=== PATIENT | male | born 1990 | race Caucasian/White ===

== ENCOUNTER 2017-06-18 10:27 | Inpatient (IN) | payer MEDICAID ==
[~2017-06-18] VITALS: Ht 177.8 cm; Wt 101.2 kg
[2017-06-18] MEDS ORDERED: LAMO25 PO (10:37)
[2017-06-18] MEDS ORDERED: QUET100T PO (10:37)
[2017-06-18] MEDS ORDERED: CITA10TA68 PO (10:37)
[2017-06-18] MEDS ORDERED: ARIP5TAB8 PO (10:37)
[2017-06-18 11:20] LABS: BASOPHILS % (AUTO) 0.5 % (0.0-2.0); EOSINOPHILS % (AUTO) 7.7 % (1.0-6.0); HEMATOCRIT 46.3 % (41-53); HEMOGLOBIN 16.2 g/dL (13.5-17.5); LYMPHOCYTES # (AUTO) 1.7 K/uL (1.0-4.8); LYMPHOCYTES % (AUTO) 27.6 % (22.0-44.0); MEAN CORPUSCULAR HEMOGLOBIN 30.2 pg (26.0-34.0); MEAN CORPUSCULAR HGB CONC 35.1 G/dL (31.0-37.0); MEAN CORPUSCULAR VOLUME 86 fL (80-100); MONOCYTES # (AUTO) 0.4 K/uL (0.1-1.0); MONOCYTES % (AUTO) 6.6 % (2.0-9.0); NEUTROPHILS # (AUTO) 3.5 K/uL (1.8-7.7); NEUTROPHILS % (AUTO) 57.6 % (40.0-70.0); PLATELET COUNT (AUTO) 295 K/uL (150-450); RED BLOOD CELL COUNT(AUTO) 5.39 MIL/uL (4.50-5.90); RED CELL DISTRIBUTION WIDTH 12.8 % (11.5-14.5)
[2017-06-18 11:28] LABS: AMPHET/METH SCREEN,URINE NEGATIVE (NEGATIVE); BARBITURATE SCREEN, URINE NEGATIVE (NEGATIVE); BENZODIAZEPINES SCREEN,URINE NEGATIVE (NEGATIVE); CANNABINOID SCREEN,URINE NEGATIVE (NEGATIVE); COCAINE SCREEN,URINE NEGATIVE (NEGATIVE); METHADONE SCREEN, URINE NEGATIVE (NEGATIVE); OPIATE SCREEN,URINE NEGATIVE (NEGATIVE)
[2017-06-18 11:29] LABS: PHENCYCLIDINE SCREEN,URINE NEGATIVE (NEGATIVE)
[2017-06-18 11:29] LABS: ANION GAP 7 mmol/L (8-16); CALCIUM, TOTAL 9.3 mg/dL (8.8-10.5); CARBON DIOXIDE 30 mmol/L (22-29); CHLORIDE 105 mmol/L (98-107); CREATININE 1.11 mg/dL (0.60-1.30); GLOMERULAR FILTR. RATE CALC > 60 mL/min (>60); GLUCOSE,RANDOM 103 mg/dL (70-110); POTASSIUM 3.8 mmol/L (3.5-5.1); SODIUM SERUM 142 mmol/L (136-145); UREA NITROGEN, BLOOD 20 mg/dL (7-18)
[2017-06-18] MEDS ORDERED: LORazepam 2 MG/ML VIAL IM ONE (11:30)
[2017-06-18] MEDS ORDERED: HALOPERIDOL LACTATE 5 MG/ML VIAL IM ONE (11:30)
[2017-06-18] MEDS ORDERED: DiphenhydrAMINE HCL 50 MG/ML VIAL IM ONE (11:30)
[2017-06-18 11:36] LABS: ALANINE AMINOTRANSFERASE 36 U/L (12-78); ALKALINE PHOSPHATASE 62 U/L (46-116); ASPARTATE AMINOTRANSFERASE 18 U/L (15-37); BILIRUBIN,TOTAL 0.5 mg/dL (0.1-1.0); TOTAL PROTEIN, SERUM 6.9 g/dL (6.4-8.2)
[2017-06-18] MEDS ORDERED: ZOLPIDEM TARTRATE 10 MG TABLET PO PRN (14:15)
[2017-06-18 16:00] VITALS: BP 114/66
[2017-06-18] MEDS ORDERED: ARIPiprazole 5 MG TABLET PO SCH (21:00)
[2017-06-18] MEDS ORDERED: LamoTRIgine 25 MG TABLET PO SCH (21:00)
[2017-06-18] MEDS ORDERED: QUEtiapine FUMARATE 100 MG TABLET PO SCH (21:00)
[2017-06-19 07:21] VITALS: BP 125/60
[2017-06-19 08:26] LABS: CHOL/HDL RATIO 4.6 (4.2-7.3)
[2017-06-19 08:40] VITALS: BP 116/63
[2017-06-19] MEDS ORDERED: CITALOPRAM HYDROBROMIDE 10 MG TABLET PO SCH (09:00)
[2017-06-19] MEDS: LORazepam 2 MG TABLET PO PRN (12:28)
[2017-06-19 13:50] VITALS: BP 129/81
[2017-06-19] MEDS: ACETAMINOPHEN 325 MG TABLET PO PRN (13:55)
[2017-06-19 16:12] VITALS: BP 118/74
[2017-06-19] MEDS: LamoTRIgine 100 MG TABLET PO SCH (20:10)
[2017-06-19] MEDS ORDERED: ARIPiprazole 10 MG TABLET PO SCH (21:00)
[2017-06-20] MEDS: HALOPERIDOL 5 MG TABLET PO PRN ×2 (01:51→16:03)
[2017-06-20] MEDS: ACETAMINOPHEN 325 MG TABLET PO PRN (02:24)
[2017-06-20] MEDS: LORazepam 2 MG TABLET PO PRN ×3 (02:53→19:35)
[2017-06-20 08:50] VITALS: BP 127/73
[2017-06-20] MEDS: CITALOPRAM HYDROBROMIDE 20 MG TABLET PO SCH (09:38)
[2017-06-20 16:30] VITALS: BP 133/91
[2017-06-20] MEDS: LamoTRIgine 100 MG TABLET PO SCH (20:02)
[2017-06-20] MEDS ORDERED: QUEtiapine FUMARATE 200 MG TABLET PO SCH (21:00)
[2017-06-21 01:08] VITALS: BP 100/62
[2017-06-21 08:14] VITALS: BP 119/80
[2017-06-21] MEDS: CITALOPRAM HYDROBROMIDE 20 MG TABLET PO SCH (08:20)
[2017-06-21] MEDS: LORazepam 2 MG TABLET PO PRN (10:02)
[2017-06-21 10:37] VITALS: BP 126/88
[2017-06-21] MEDS: ACETAMINOPHEN 325 MG TABLET PO PRN (10:40)
[2017-06-21 11:41] VITALS: BP 135/78
== END 2017-06-21 13:13 | disposition home or self-care (01) | DRG 753 ==
LOC: EMS 10:29 → AHU 13:52 → B2S 15:15
PROVIDERS: ADMIT Psychiatry & Neurology Psychiatry; ATTEND Psychiatry & Neurology Psychiatry
DX: F31.30 Bipolar disorder, current episode depressed, mild or moderate severity, unspecified (principal); R45.851 Suicidal ideations; F41.9 Anxiety disorder, unspecified; F12.90 Cannabis use, unspecified, uncomplicated; Z59.0 Homelessness; Z87.442 Personal history of urinary calculi; Z81.8 Family history of other mental and behavioral disorders
CPT/HCPCS: 96372; 99285; G0480; J1200; J1630; J2060